=== PATIENT | female | born 1945 | race African-American/Black ===

== ENCOUNTER 2016-10-19 07:39 | Observation (INO) | payer OTHER ==
--- NOTE | 2016-10-19 07:50 | EDPHY ---
H & P Time Seen by Provider: 10/19/16 07:40 HPI/ROS: CHIEF COMPLAINT: Disgruntled HISTORY OF PRESENT ILLNESS: The patient is a 70-year-old female at [facility] who was angry with them and so called for help. She states that they would not get her a wheelchair so she had to "walk all the way down the elevator". She states that this caused her to have chest pain and so she called 411 and then 911. She states that her symptoms have now resolved. She does have a history of AFib and CHF and is on Xarelto. 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 She denies shortness of breath. She denies nausea vomiting or diarrhea. She denies recent illness. REVIEW OF SYSTEMS: Constitutional: denies: chills, fever, recent illness, recent injury EENTM: denies: blurred vision, double vision, nose congestion Respiratory: denies: cough, shortness of breath Cardiac: See HPI Gastrointestinal/Abdominal: denies: abdominal pain, diarrhea, nausea, vomiting, blood streaked stools Genitourinary: denies: dysuria, frequency, hematuria, pain Musculoskeletal: denies: joint pain, muscle pain Skin: denies: lesions, rash, jaundice, bruising Neurological: denies: headache, numbness, paresthesia, tingling, dizziness, weakness Hematologic/Lymphatic: denies: blood clots, easy bleeding, easy bruising Immunologic/allergic: denies: HIV/AIDS, transplant EXAM: GENERAL: Thin, dry skin HEAD: Atraumatic, normocephalic. EYES: Pupils equal round and reactive to light, extraocular movements intact, sclera anicteric, conjunctiva are normal. ENT: TMs normal, nares patent, oropharynx clear without exudates. Moist mucous membranes. NECK: Normal range of motion, supple without lymphadenopathy or JVD. LUNGS: Breath sounds clear to auscultation bilaterally and equal. No wheezes rales or rhonchi. HEART: Regular rate and rhythm without murmurs, rubs or gallops. ABDOMEN: Soft, nontender, normoactive bowel sounds. No guarding, no rebound. No masses appreciated. BACK: No CVA tenderness, no spinal tenderness, step-offs or deformities EXTREMITIES: No trauma, no pitting or edema. No clubbing or cyanosis. NEUROLOGICAL: Cranial nerves II through XII grossly intact. Normal speech, left-sided contractures and minimal movement. Right-sided normal. PSYCH: Normal mood, normal affect, laughing. SKIN: Warm, slightly dry, no visible rashes or lesions. Source: Patient, EMS, shelter records - Personal History Tetanus Vaccine Date: 2012 - Medical/Surgical History Hx Asthma: No Hx Chronic Respiratory Disease: No Hx Diabetes: Yes Hx Cardiac Disease: Yes Hx Renal Disease: No Hx Cirrhosis: No Hx Alcoholism: No Hx HIV/AIDS: No Hx Splenectomy or Spleen Trauma: No Other PMH: MD, CHF, CVA with L-sided deficits, hysterectomy - Family History Significant Family History: No pertinent family hx - Social History Smoking Status: Never smoked Alcohol Use: Sober Drug Use: None Constitutional: Initial Vital Signs Temperature (C) 37.3 C 10/19/16 07:50 Heart Rate 68 10/19/16 07:50 Respiratory Rate 18 10/19/16 07:50 Blood Pressure 111/65 10/19/16 07:50 O2 Sat (%) 95 10/19/16 07:50 O2 Delivery Mode Room Air Allergies/Adverse Reactions: aspirin Allergy (Verified 10/19/16 07:50) latex Allergy (Verified 10/19/16 07:50) levofloxacin Allergy (Verified 10/19/16 07:50) Home Medications: Medication Instructions Recorded Baclofen [Baclofen 10 mg (*)] 10 mg PO QID PRN 12/14/14 Carvedilol [Coreg (*)] 12.5 mg PO BID 12/14/14 Cholecalciferol Vit D3 [Vitamin D3 2,000 units PO DAILY 12/14/14 2000 units] Citalopram [CeleXA 20 MG] 20 mg PO DAILY 12/14/14 Cyanocobalamin [Vitamin B12 (*)] 1,000 mcg PO DAILY 12/14/14 Diclofenac Sodium 1% [Voltaren Gel 2 gm TP DAILY PRN 12/14/14 (*)] Docusate Sodium [Colace 100 MG (*)] 100 mg PO BID PRN 12/14/14 Ferrous Gluconate 325 mg PO DAILY 12/14/14 Lisinopril [Zestril 10 mg (*)] 5 mg PO DAILY 12/14/14 Magnesium Oxide [Magnesium Oxide 400 mg PO BID 12/14/14 400 mg (*)] Nitroglycerin [Nitrostat 0.4 mg 0.4 mg SL PRN PRN 12/14/14 (*)] Polyethylene Glycol 3350 [Miralax 17 gm PO BID PRN 12/14/14 17 gm (*)] traMADol [Ultram 50 mg (*)] 50 mg PO Q6 PRN 12/14/14 CETIRIZINE HCL [ZYRTEC] 5 mg PO BID PRN 02/09/15 metFORMIN HCL [Glucophage 500 mg 500 mg PO BIDMEAL 02/09/15 (*)] Dextran 70/Hypromellose 1 each OP QID PRN 10/19/16 [Artificial Tears] Enoxaparin [Lovenox 60 MG (*)] 60 mg SQ BID 10/19/16 Furosemide [Lasix 20 MG (*)] 20 mg PO DAILY 10/19/16 Herbals/Supplements -Info Only 1 ea PO DAILY 10/19/16 Loperamide HCl [Imodium 2 mg (*)] 2 mg PO PRN PRN 10/19/16 Ondansetron Odt [Zofran Odt 4 mg 4 mg PO Q8HRS PRN 10/19/16 (*)] Pravastatin Sodium 40 mg PO DAILY 10/19/16 Ranitidine HCl [Zantac] 150 mg PO BID 10/19/16 Rivaroxaban [Xarelto 15mg (*)] 15 mg PO DAILY 10/19/16 Spironolactone [Aldactone 25 MG 12.5 mg PO DAILY 10/19/16 (*)] Medical Decision Making - Diagnostics Imaging Results: Imaging Impressions Chest X-Ray 10/19/16 07:46 Impression: Nothing acute identified. X-ray: chest x-ray was obtained. I viewed the images myself on the PACS system. My interpretation of the images is: negative for acute disease . The radiologist interpretation is pending. ED Course/Re-evaluation: An EKG obtained and was read and documented in trace view. Please see trace view for full reading and report. Sinus rhythm, right bundle branch block, T- wave inversions unchanged from 2016 8:30 a.m. the patient has an elevated troponin. She had a catheterization [address] Parra. She had clean coronaries at that time but dilated cardiomyopathy with an ejection fraction 25%. 8:40 a.m. I discussed the case with Priyanka who accepted for Dr. Arriaga. She agrees with not giving aspirin. The patient's pain is currently gone. Differential Diagnosis: Partial list of the Differential diagnosis considered include but were not limited to; acute coronary disease, anxiety, CHF and although unlikely based on the history and physical exam, I also considered pneumonia, pneumothorax, trauma. Critical Care Time: Critical care time spent by me, Dr. Yang exclusive with this patient was 35 minutes, exclusive of the PA time exclusive of procedures. The organ system that was at risk was cardiovascular and I gave workup in consultation and admission to prevent worsening of the patient's condition - Data Points Laboratory Results: Laboratory Results 10/19/16 07:40 10/19/16 07:40 10/19/16 10/19/16 10/19/16 07:40 07:40 07:40 WBC RBC Hgb Hct MCV MCH MCHC RDW Plt Count MPV Neut % (Auto) Lymph % (Auto) Mcdowell % (Auto) Eos % (Auto) Baso % (Auto) Nucleat RBC Rel Count Absolute Neuts (auto) Absolute Lymphs (auto) Absolute Monos (auto) Absolute Eos (auto) Absolute Basos (auto) Absolute Nucleated RBC Immature Gran % Immature Gran # PT 21.3 SEC H SEC (12.0-15.0) INR 1.84 H (0.83-1.16) APTT 40.0 SEC H SEC (23.0-38.0) Sodium 141 mEq/L mEq/L (134-144) Potassium 4.2 mEq/L mEq/L (3.5-5.2) Chloride 106 mEq/L mEq/L (97-110) Carbon Dioxide 19 mEq/l L mEq/l (22-31) Anion Gap 16 mEq/L mEq/L (8-16) BUN 25 mg/dL H mg/dL (7-23) Creatinine 1.9 mg/dL H mg/dL (0.6-1.0) Estimated GFR 26 Glucose 96 mg/dL mg/dL (70-100) Calcium 10.3 mg/dL mg/dL (8.5-10.4) Phosphorus 3.3 mg/dL mg/dL (2.5-4.5) Magnesium 1.4 mg/dL L mg/dL (1.6-2.3) Troponin I 1.630 ng/mL H ng/mL (0.000-0.034) NT-Pro-B Natriuret Pep 493 pg/mL H pg/mL (0-125) 10/19/16 07:40 WBC 6.89 10^3/uL 10^3/uL (3.80-9.50) RBC 4.24 10^6/uL 10^6/uL (4.18-5.33) Hgb 11.0 g/dL L g/dL (12.6-16.3) Hct 33.8 % L % (38.0-47.0) MCV 79.7 fL L fL (81.5-99.8) MCH 25.9 pg L pg (27.9-34.1) MCHC 32.5 g/dL g/dL (32.4-36.7) RDW 13.9 % % (11.5-15.2) Plt Count 248 10^3/uL 10^3/uL (150-400) MPV 9.9 fL fL (8.7-11.7) Neut % (Auto) 63.9 % % (39.3-74.2) Lymph % (Auto) 26.4 % % (15.0-45.0) Mcdowell % (Auto) 8.7 % % (4.5-13.0) Eos % (Auto) 0.4 % L % (0.6-7.6) Baso % (Auto) 0.3 % % (0.3-1.7) Nucleat RBC Rel Count 0.0 % % (0.0-0.2) Absolute Neuts (auto) 4.40 10^3/uL 10^3/uL (1.70-6.50) Absolute Lymphs (auto) 1.82 10^3/uL 10^3/uL (1.00-3.00) Absolute Monos (auto) 0.60 10^3/uL 10^3/uL (0.30-0.80) Absolute Eos (auto) 0.03 10^3/uL 10^3/uL (0.03-0.40) Absolute Basos (auto) 0.02 10^3/uL 10^3/uL (0.02-0.10) Absolute Nucleated RBC 0.00 10^3/uL 10^3/uL (0-0.01) Immature Gran % 0.3 % % (0.0-1.1) Immature Gran # 0.02 10^3/uL 10^3/uL (0.00-0.10) PT INR APTT Sodium Potassium Chloride Carbon Dioxide Anion Gap BUN Creatinine Estimated GFR Glucose Calcium Phosphorus Magnesium Troponin I NT-Pro-B Natriuret Pep Medications Given: Clopidogrel Bisulfate (Plavix) 75 mg PO DAILY [facility] Stop: 04/17/17 09:59 Last Admin: 10/19/16 11:19 Dose: 75 mg Rivaroxaban (Xarelto) 15 mg PO DAILY [facility] Stop: 04/17/17 09:44 Last Admin: 10/19/16 11:10 Dose: Not Given Discontinued Medications Aspirin Buffered (Aspirin Ec) 325 mg PO ONCE ONE Stop: 10/19/16 09:37 Last Admin: 10/19/16 10:28 Dose: Not Given Departure - Departure Disposition: [facility] Inpatient Acute Clinical Impression: Chest pain Qualifiers: Chest pain type: unspecified Qualified Code(s): R07.9 - Chest pain, unspecified Condition: Fair
[2016-10-19 07:55] LABS: % IMMATURE GRANULYOCYTES 0.3 % (0.0-1.1); ABSOLUTE IMMATURE GRANULOCYTES 0.02 10^3/uL (0.00-0.10); ADD DIFF? NO; ADD MORPH? NO; ADD SCAN? NO; ATYPICAL LYMPHOCYTE FLAG 0 (0-99); FRAGMENT RBC FLAG 0 (0-99); HEMATOCRIT 33.8 % (38.0-47.0); LEFT SHIFT FLG 0 (0-99); LIPEMIA HEMOLYSIS FLAG 80 (0-99); MEAN CELL HEMOGLOBIN 25.9 pg (27.9-34.1); MEAN CELL HEMOGLOBIN CONCENTR. 32.5 g/dL (32.4-36.7); MEAN CELL VOLUME 79.7 fL (81.5-99.8); MEAN PLATELET VOLUME 9.9 fL (8.7-11.7); PLATELET CLUMPS FLAG 0 (0-99); PLATELET COUNT 248 10^3/uL (150-400); RED BLOOD CELL COUNT 4.24 10^6/uL (4.18-5.33); RED CELL DISTRIBUTION WIDTH 13.9 % (11.5-15.2)
--- NOTE | 2016-10-19 07:58 | CPEKG ---
Heart Rate: 59 RR Interval: 1017 P-R Interval: 216 QRSD Interval: 132 QT Interval: 456 QTC Interval: 452 P [place]: 71 QRS [place]: -29 T Wave [place]: 195 EKG Severity - ABNORMAL ECG - EKG Impression: SINUS RHYTHM EKG Impression: RIGHT BUNDLE BRANCH BLOCK EKG Impression: INFERIOR INFARCT, AGE INDETERMINATE EKG Impression: Unchanged from March 2015 Electronically Signed By: Quinn Yang 19-Oct-2016 08:11:12
[2016-10-19 08:15] LABS: ANION GAP 16 mEq/L (8-16); CALCIUM 10.3 mg/dL (8.5-10.4); CARBON DIOXIDE 19 mEq/l (22-31); CHLORIDE 106 mEq/L (97-110); CREATININE 1.9 mg/dL (0.6-1.0); GLOMERULAR FILTRATION RATE 26; GLUCOSE 96 mg/dL (70-100); POTASSIUM 4.2 mEq/L (3.5-5.2); SODIUM 141 mEq/L (134-144)
[2016-10-19 08:42] LABS: INR 1.84 (0.83-1.16); PROTIME(PATIENT) 21.3 SEC (12.0-15.0)
[2016-10-19] MEDS ORDERED: ASPIRIN EC 325 MG TAB PO ONE (09:36)
[2016-10-19] MEDS ORDERED: ACETAMINOPHEN 325 MG TAB PO PRN (09:37)
[2016-10-19] MEDS ORDERED: ONDANSETRON DISINTEGRATING 4 MG TAB PO PRN (09:37)
[2016-10-19] MEDS ORDERED: ONDANSETRON 4 MG/2 ML VIAL IVP PRN (09:37)
[2016-10-19] MEDS ORDERED: oxyCODONE IR 5 MG TAB PO PRN (09:37)
[2016-10-19] MEDS ORDERED: traMADol 50 MG TAB PO PRN (09:39)
[2016-10-19] MEDS ORDERED: NITROGLYCERIN 0.4 MG BTL SL PRN (09:39)
[2016-10-19] MEDS ORDERED: DOCUSATE SODIUM 100 MG CAP PO PRN (09:39)
[2016-10-19] MEDS ORDERED: BACLOFEN 10 MG TAB PO PRN (09:39)
[2016-10-19] MEDS ORDERED: LOPERAMIDE HCL 2 MG CAP PO PRN (09:39)
[2016-10-19] MEDS ORDERED: DICLOFENAC SODIUM 1% 100 GM GEL TP PRN (09:39)
[2016-10-19] MEDS ORDERED: POLYETHYLENE GLYCOL 3350 17 GM PKT PO PRN (09:39)
[2016-10-19] MEDS ORDERED: D50W 25 GM/50 ML SYR IVP PRN (09:42)
[2016-10-19 09:51] LABS: MAGNESIUM 1.4 mg/dL (1.6-2.3)
--- NOTE | 2016-10-19 10:33 | GHP ---
[f rep st] HISTORY AND PHYSICAL DATE OF ADMISSION: 10/19/2016 CHIEF COMPLAINT: Frustrated with nursing care, neck/chest pain. HISTORY OF PRESENT ILLNESS: This is a 70-year-old female with a significant cardiac history present s with an episode of chest pain after being frustrated with the nursing staff at [facility] where she lives. She has a history of a stroke with left-sided contractures. She is normally in a motori zed wheelchair; however, this was not working this morning. This made her slightly upset and she hernandez d an episode of stabbing chest pain which went to her back. Nursing staff told that she was able to walk, so she did walk with her cane. She says that her chest pain got worse as she was ambulating. It was associated with shortness of breath. She does not normally have pain like this. She was t hus transported to the emergency department here and found to have an elevated troponin of 1.6. She has a significant cardiac history including dilated cardiomyopathy thought to be a combination o f ischemic and nonischemic, coronary artery disease with likely an inferior ND, AFib currently on Xa relto. She has been compliant with her medications. PAST MEDICAL/SURGICAL HISTORY: 1. Atrial fibrillation, rate controlled on Coreg, on Xarelto for anticoagulation. 2. 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 3. Cardiomyopathy with an EF of about 20% to 30%, followed by Dr. Juarez, thought to be ischemic and nonischemic in nature, had refused AICD placement in the past. 4. Likely coronary artery disease, status post cath by Dr. Parra in December of 2014 showing glob al hypokinesis and inferior akinesis with otherwise normal coronary arteries. 5. Hypertension. 6. Hyperlipidemia. 7. Diabetes mellitus type 2. 8. Chronic kidney disease with a baseline creatinine of about 1.8. This has been slowly climbing. MEDICATIONS: Please see medication reconciliation. ALLERGIES: Aspirin, Lasix, and Levaquin. SOCIAL HISTORY: She lives at [facility] permanently. FAMILY HISTORY: Reviewed and noncontributory. REVIEW OF SYSTEMS: 10-point review of systems is conducted and is negative except per HPI. PHYSICAL EXAM: VITAL SIGNS: Blood pressure 108/46, heart rate 62, respiration rate 16, saturating 95% on room air, temperature is 37.3. GENERAL: The patient is a pleasant female who is resting com fortably in bed. She does have noted left-sided contractures, in no acute distress. HEENT: Normoc ephalic, atraumatic. CARDIOVASCULAR: Regular rate and rhythm, though she is borderline bradycardic . No murmurs, rubs, or gallops. PULMONARY: Lungs clear to auscultation bilaterally. ABDOMEN: So ft, nontender, nondistended. SKIN: No rash. GENITOURINARY: No Durán. NEUROLOGIC: Alert and bre ented x3. She has left-sided hemiparesis and contractures. PSYCHIATRIC: Normal mood and affect. LABORATORY: White count is 6.9, hemoglobin 11. INR is 1.8. Creatinine is 1.9. Troponin is 1.6. Potassium is 4.2. DATA: 1. I discussed this with both Dr. Yang as well as Dr. Saldana. 2. Chest x-ray, which I personally viewed and interpreted, shows mild right basilar linear infiltra tom which I believe are most likely atelectasis. It is not very changed from her prior. 3. EKG, which I personally viewed and interpreted, shows a right bundle branch block. She has infe rior Q-waves. She has T-wave inversions in all of her precordial leads which were not significantly changed from prior. IMPRESSION AND PLAN: 70-year-old female with significant cardiac history presents with chest pain a nd elevated troponin. 1. Tub-[id number] myocardial infarction: I have discussed this with Dr. Saldana, who will consult. She is anticoagulated currently on Xarelto. She has an aspirin allergy. I will give her Plavix in stead. She is currently chest pain-free. Will trend her troponins and follow closely with Cardiolo gy. I have made her n.p.o. in case a procedure is indicated. 2. Chronic kidney disease: She is approximately at her baseline. Creatinine of 1.9. This has cre pt up recently. I will go ahead and check urine electrolytes now. 3. History of a cerebrovascular accident: She is anticoagulated on Xarelto. She does have left-si ded contractures and hemiparesis. I have continued her other symptomatic medications. 4. Atrial fibrillation: Rate controlled, anticoagulated on Xarelto. 5. Hypertension: Controlled. 6. Anemia: This is chronic and stable. It is microcytic. 7. Diabetes mellitus type 2: Will check blood sugars and give her low-dose sliding scale. Will ho ld her metformin with elevated creatinine. 8. Hyperlipidemia. 9. Code status: She would like to be a limited resuscitation. She declines intubation but would w ant CPR. This is consistent with her prior request. She is Catholic and would not want a blood transfusion. 10. Venous thromboembolism risk is low as she is on Xarelto. /[id number]/MODL
[2016-10-19] MEDS ORDERED: TEARS/DEXTRAN 70/HYPROMELLOSE 15 ML OPHT.BTL OP PRN (10:59)
[2016-10-19] MEDS ORDERED: CETIRIZINE 10 MG TAB PO PRN (11:00)
[2016-10-19] MEDS: RIVAROXABAN 15 MG TAB PO SCH (11:10)
[2016-10-19] MEDS: CLOPIDOGREL BISULFATE 75 MG TAB PO SCH (11:19)
[2016-10-19] MEDS: INSULIN LISPRO 100 UNIT/ML SC SCH ×2 (12:23→16:04)
[2016-10-19] MEDS ORDERED: MAGNESIUM SULF 2 GM/WATER 50 ML IV ONE (13:48)
[2016-10-19 18:35] LABS: COLOR YELLOW; LEUKOCYTE ESTERASE,URINE NEGATIVE (NEGATIVE); NITRITE,URINE NEGATIVE (NEGATIVE)
[2016-10-19] MEDS: CARVEDILOL 6.25 MG TAB PO SCH (18:55)
[2016-10-19] MEDS: FAMOTIDINE 20 MG TAB PO SCH (20:33)
[2016-10-19] MEDS: MAGNESIUM OXIDE 400 MG TAB PO SCH (20:33)
--- NOTE | 2016-10-19 21:54 | GCON ---
[f rep st] CONSULTATION DATE OF CONSULTATION: 10/19/2016 PRIMARY CARE: Aury Kaiser MD PRIMARY FLIGHT PARAMEDIC: Nikki Juarez MD CHIEF COMPLAINT: Chest pain. HISTORY OF PRESENT ILLNESS: We were asked by Dr. Arriaga to visit with this patient. The patient i s a 70-year-old female with a history of nonischemic cardiomyopathy, paroxysmal atrial fibrillation, chronic renal insufficiency and stroke. She resides at the [facility]. This morning she was upset with the staff there because they were not helping her get to the elevator. In this setting, she had some sharp chest pain that radiated to he r back. Because of this symptom, she was brought to the ER. Her chest pain has now resolved. She has not had any recent shortness of breath, presyncope, or syncope. She denies palpitations. N o lower extremity edema. She has been working with physical therapy and is able to do some walking despite her significant left-sided contractures and weakness, status post stroke. In the past, she has declined an ICD for her cardiomyopathy. ALLERGIES: Aspirin, latex and levofloxacin. PAST MEDICAL HISTORY: 1. Paroxysmal atrial fibrillation. 2. Nonischemic cardiomyopathy. 3. Pulmonary hypertension. 4. Chronic renal insufficiency. 5. Dyslipidemia. 6. Stroke. 7. Hypertension. 8. Anemia. 9. Status post hysterectomy. 10. Diabetes. OUTPATIENT MEDICATIONS: Reviewed. SOCIAL HISTORY: The patient lives at the [facility] . She does not smoke cigarettes or dri nk alcohol. 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 The patient is Anabaptist. FAMILY HISTORY: Not applicable to the current case. PHYSICAL EXAM: VITAL SIGNS: Blood pressure 123/67, heart rate 55, oxygen saturation 98% on room ai r. She is afebrile. Respiratory rate 17. GENERAL: Well-appearing older female in no acute distres s. HEENT: Sclerae clear, free of jaundice. Mucous members are moist. CARDIOVASCULAR: JVP is les s than 10. Regular rate and rhythm without murmur, rub, or gallop. LUNGS: Clear to auscultation w ithout wheezes, rhonchi, or rales. EXTREMITIES: Warm and well perfused without cyanosis, clubbing, or edema. ABDOMEN: Soft, nontender, nondistended without bruits, masses or hepatosplenomegaly. LABORATORY DATA: White count 6.9, hematocrit 33.8, and platelets are 248. INR 1.84. Sodium 141, po tassium 4.3, chloride 106, bicarb 19, BUN 25, creatinine 1.9, magnesium 1.4. Troponin initially was 1.6, and then upon repeat 4 hours later is 0.027. BNP is 493, which is near her baseline. EKG, reviewed by me, shows sinus rhythm, right bundle branch block, and inferior Q-waves. Chest x-ray, reviewed by me, shows no acute cardiopulmonary process. Her last cardiac catheterization was in December 2014, with no coronary disease. Her last echocardio gram was also in 2014, demonstrating left ventricular ejection fraction of 20% to 25%. ASSESSMENT AND PLAN: A 70-year-old female with multiple cardiac issues as detailed above. She pres ents with an episode of chest pain that was self-limited and not ongoing. Her initial troponin was 1.6 but is now completely normal, suggestive of lab error. She appears euvolemic. 1. Chest pain: This does not appear to be cardiac. Repeat 1 more troponin. If negative, she may be safely discharged back to the [facility]. Continue her usual cardiac medications. 2. Catheterization less than 2 years ago showed no coronary disease. She was given a dose of Plavi x in the ER when her troponin is 1.6 (aspirin allergy), but I do not feel that we need to continue o n the Plavix if her 3rd troponin is also negative. 3. Cardiomyopathy: Ejection fraction in 2015 was approximately 20%. She has declined implantable cardioverter defibrillator. She appears euvolemic. She is on Coreg. Lisinopril is listed on her o utpatient medication but has not been started here in the hospital. Would consider this may be due to her increasing creatinine. Would have her follow up with Dr. Juarez as an outpatient for reconsid eration of lisinopril therapy. Also as an outpatient, she is listed to be on spironolactone, but ag ain this may be on hold due to her increasing creatinine. As mentioned, she should follow up with Eric Juarez in 1-2 weeks. 4. Paroxysmal atrial fibrillation: She is currently in sinus rhythm. She has a history of stroke. She is on Xarelto at appropriate renal dosing. 5. Hypertension: Currently well controlled. 6. Chronic renal insufficiency: Near her baseline but overall slightly worse for the past several months. She will require outpatient followup. 7. Anemia: This is chronic. 8. History of nonsustained ventricular tachycardia: This is seen on telemetry this morning. She h as previously declined an implantable cardioverter defibrillator and again declined that today. 9. Thank you for allowing us to participate in this patient's care. We will sign off. I think she is stable for discharge if her 3rd troponin is negative and she has no change in clinical status. Follow up with Dr. Juarez. /[id number]/MODL
[2016-10-20 04:58] LABS: ADD DIFF? NO; ADD MORPH? NO; ADD SCAN? NO; ATYPICAL LYMPHOCYTE FLAG 10 (0-99); FRAGMENT RBC FLAG 20 (0-99); HEMATOCRIT 30.7 % (38.0-47.0); HEMOGLOBIN 9.8 g/dL (12.6-16.3); LEFT SHIFT FLG 0 (0-99); LIPEMIA HEMOLYSIS FLAG 80 (0-99); MEAN CELL HEMOGLOBIN 25.5 pg (27.9-34.1); MEAN CELL HEMOGLOBIN CONCENTR. 31.9 g/dL (32.4-36.7); MEAN CELL VOLUME 79.7 fL (81.5-99.8); MEAN PLATELET VOLUME 9.9 fL (8.7-11.7); PLATELET CLUMPS FLAG 0 (0-99); PLATELET COUNT 226 10^3/uL (150-400); RED BLOOD CELL COUNT 3.85 10^6/uL (4.18-5.33); RED CELL DISTRIBUTION WIDTH 13.8 % (11.5-15.2)
[2016-10-20 05:15] LABS: ALANINE AMINOTRANSFERASE 20 IU/L (9-52); ALBUMIN 3.5 g/dL (3.5-5.0); ALKALINE PHOSPHATASE 37 IU/L (38-126); ANION GAP 8 mEq/L (8-16); ASPARTATE AMINOTRANSFERASE 16 IU/L (14-46); BILIRUBIN,TOTAL 0.7 mg/dL (0.1-1.4); CALCIUM 9.7 mg/dL (8.5-10.4); CARBON DIOXIDE 27 mEq/l (22-31); CHLORIDE 104 mEq/L (97-110); CREATININE 1.7 mg/dL (0.6-1.0); GLOMERULAR FILTRATION RATE 30; GLUCOSE 85 mg/dL (70-100); POTASSIUM 3.6 mEq/L (3.5-5.2); SODIUM 139 mEq/L (134-144); TOTAL PROTEIN 6.6 g/dL (6.3-8.2)
[2016-10-20 07:24] VITALS: RESP 16; TEMP 97.3; O2SAT 96
[2016-10-20] MEDS ORDERED: FERROUS GLUCONATE 325 MG PO SCH (09:00)
[2016-10-20] MEDS ORDERED: CITALOPRAM 20 MG TAB PO SCH (09:00)
[2016-10-20] MEDS ORDERED: FERROUS SULFATE 325 MG TAB PO SCH (09:00)
[2016-10-20] MEDS ORDERED: PRAVASTATIN SODIUM 40 MG TAB PO SCH (09:00)
[2016-10-20] MEDS ORDERED: CYANO/VITAMIN B12 1000 MCG TAB PO SCH (09:00)
--- NOTE | 2016-10-20 09:06 | CPEKG ---
Heart Rate: 61 RR Interval: 984 P-R Interval: 240 QRSD Interval: 132 QT Interval: 480 QTC Interval: 484 P [place]: 73 QRS [place]: -24 T Wave [place]: 87 EKG Severity - ABNORMAL ECG - EKG Impression: SINUS RHYTHM EKG Impression: FIRST DEGREE AV BLOCK EKG Impression: RIGHT BUNDLE BRANCH BLOCK EKG Impression: INFERIOR INFARCT, AGE INDETERMINATE Electronically Signed By: Shade Fagan 20-Oct-2016 21:58:16
[2016-10-20] MEDS: CARVEDILOL 6.25 MG TAB PO SCH (09:09)
[2016-10-20] MEDS: INSULIN LISPRO 100 UNIT/ML SC SCH (09:09)
[2016-10-20] MEDS: MAGNESIUM OXIDE 400 MG TAB PO SCH (09:10)
[2016-10-20] MEDS: CLOPIDOGREL BISULFATE 75 MG TAB PO SCH (09:10)
[2016-10-20] MEDS: FAMOTIDINE 20 MG TAB PO SCH (09:10)
[2016-10-20] MEDS: RIVAROXABAN 15 MG TAB PO SCH (09:13)
[2016-10-20 09:37] VITALS: BP 91/52; PULSE 57
--- NOTE | 2016-10-20 10:55 | GDS ---
[f rep st] DISCHARGE SUMMARY DIAGNOSES: 1. Chest pain, likely noncardiac. 2. Laboratory error with markedly elevated troponin. 3. History of dilated cardiomyopathy, thought to be ischemic and nonischemic in nature. 4. Chronic kidney disease at baseline. 5. History of a cerebrovascular accident. 6. Atrial fibrillation, rate controlled, anticoagulated on Xarelto. 7. Hypertension. 8. Anemia. 9. Diabetes mellitus type 2. 10. Hyperlipidemia. HOSPITAL COURSE: This is a 70-year-old female who presented with atypical chest pain. Her initial troponin was markedly elevated at 1.6. However, followup troponin 3 hours later was normal. This w ould physiologically be impossible. Thus, the assumption, by me as well as Cardiology, is that the initial troponin was a lab error. Notably, she had a third followup troponin which was also in the normal range. She feels well and ready to go. I will discharge her without any changes in her card iac medications. Diabetes mellitus type 2: She has been on metformin. Given her creatinine, I think it is probably quesada to hold this. Will defer to her outpatient physicians on ongoing care. Atrial fibrillation: She is on Xarelto. She does have Lovenox on her MAR, which is planned for a d ental procedure. I put this back on her MAY, but she should not get both Xarelto and Lovenox at the same time. Cardiomyopathy/nonsustained ventricular tachycardia: She has refused AICD in the past. Otherwise, she is on appropriate cardiac medications. DISPOSITION: She is discharged in stable condition to her previous living situation at [facility] . /[id number]/MODL
== END 2016-10-20 12:30 | disposition home or self-care (01) ==
LOC: EDUNIT# → F2W 10:37
PROVIDERS: ADMIT Student in an Organized Health Care Education/Training Program; ATTEND Student in an Organized Health Care Education/Training Program
DX: R07.9 Chest pain, unspecified (principal); N18.9 Chronic kidney disease, unspecified; I48.91 Unspecified atrial fibrillation; I10 Essential (primary) hypertension; D64.9 Anemia, unspecified; E11.9 Type 2 diabetes mellitus without complications; E78.5 Hyperlipidemia, unspecified; Z86.73 Personal history of transient ischemic attack (TIA), and cerebral infarction without residual deficits
CPT/HCPCS: 71010; 93005; 97162; 97165; 99291; G0378; G8978; G8979; G8980; G8987; G8988; G8989

== ENCOUNTER 2017-04-11 14:07 | Emergency (ER) | payer OTHER ==
[2017-04-11 14:39] VITALS: TEMP 98.1
--- NOTE | 2017-04-11 14:54 | CPEKG ---
Heart Rate: 50 RR Interval: 1200 P-R Interval: 268 QRSD Interval: 138 QT Interval: 500 QTC Interval: 456 P [place]: 98 QRS [place]: -52 T Wave [place]: 16 EKG Severity - ABNORMAL ECG - EKG Impression: SINUS RHYTHM EKG Impression: FIRST DEGREE AV BLOCK EKG Impression: RIGHT BUNDLE BRANCH BLOCK EKG Impression: INFERIOR INFARCT, AGE INDETERMINATE EKG Impression: CONSIDER ANTERIOR INFARCT Electronically Signed By: Chelsey Francisco 11-Apr-2017 22:29:03
--- NOTE | 2017-04-11 15:34 | EDPHY ---
H & P Stated Complaint: Transient CP this am;sent for eval;no pain at present Time Seen by Provider: 04/11/17 14:46 HPI/ROS: CHIEF COMPLAINT: Transient chest pain and "can I see a psychiatrist? " HISTORY OF PRESENT ILLNESS: This is a 71-year-old female with a history of coronary artery disease status post NC, CVA, hypertension, type 2 diabetes, and hyperlipidemia. She presents by ambulance from the [facility] after complaining of chest pain. She tells me that about 2 hr ago she had migrating chest pain while at rest. It occurs on both sides of her body. She took tramadol with relief. She is not currently experiencing chest pain. She had no other associated symptoms. She is also requesting to see a psychiatrist because she "feels crazy ". She cannot be more specific than that she relates it to events at her living facility. She is unhappy with the care that she receives there. She is moving out on , 2 days from now, and will be going to [place] where she has relatives. She denies suicidality or homicidality. REVIEW OF SYSTEMS: A ten point review of systems was performed and is negative with the exception of the items mentioned in the HPI. Past medical history: 1. Coronary artery disease status post NC 2. CHF 3. Hypertension 4. Hyperlipidemia 5. Type 2 diabetes 6. CVA with residual left-sided weakness Past surgical history: Hysterectomy Social history: Resides at the [facility]. Walks with a cane. General Appearance: Alert. Vital signs reviewed. Blood pressure 147/60. Eyes: Pupils equal and round, no conjunctival injection, no discharge. Anicteric. ENT, Mouth: Mucous membranes are moist, no oropharyngeal erythema or edema. Neck: No lymphadenopathy, supple. Respiratory: Lungs are clear to auscultation; no wheezes, rales, or rhonchi. Cardiovascular: Regular rate and rhythm; no murmur, rub, or gallop. Gastrointestinal: Abdomen is soft and nontender, no masses or organomegaly, bowel sounds normal. Skin: Warm and dry, no rashes on exposed skin, normal color. Back: Nontender to palpation over the thoracolumbar spine. No CVAT. Extremities: No lower extremity edema, no calf tenderness or swelling. Neurological: Alert and oriented. Contracture left upper extremity. Slight weakness left lower extremity. Normal strength right UE and LE. Psychiatric: Normal affect. - Personal History Current Tetanus Diphtheria and Acellular Pertussis (TDAP): Yes Tetanus Vaccine Date: 2012 - Medical/Surgical History Hx Asthma: No Hx Chronic Respiratory Disease: No Hx Diabetes: Yes Hx Cardiac Disease: Yes Hx Renal Disease: No Hx Cirrhosis: No Hx Alcoholism: No Hx HIV/AIDS: No Hx Splenectomy or Spleen Trauma: No Other PMH: NC, CHF, CVA with L-sided deficits, hysterectomy - Social History Smoking Status: Never smoked Constitutional: Initial Vital Signs Temperature (C) 36.7 C 04/11/17 14:05 Heart Rate 78 04/11/17 14:05 Respiratory Rate 18 04/11/17 14:05 Blood Pressure 147/60 H 04/11/17 14:05 O2 Sat (%) 94 04/11/17 14:05 O2 Delivery Mode Room Air Allergies/Adverse Reactions: aspirin Allergy (Verified 04/11/17 14:09) latex Allergy (Verified 04/11/17 14:09) levofloxacin Allergy (Verified 04/11/17 14:09) Home Medications: Medication Instructions Recorded Baclofen [Baclofen 10 mg (*)] 10 mg PO QID PRN 12/14/14 Carvedilol [Coreg (*)] 12.5 mg PO BID 12/14/14 Cholecalciferol Vit D3 [Vitamin D3 2,000 units PO DAILY 12/14/14 2000 units] Citalopram [CeleXA 20 MG] 20 mg PO DAILY 12/14/14 Cyanocobalamin [Vitamin B12 (*)] 1,000 mcg PO DAILY 12/14/14 Diclofenac Sodium 1% [Voltaren Gel 2 gm TP DAILY PRN 12/14/14 (*)] Docusate Sodium [Colace 100 MG (*)] 100 mg PO BID PRN 12/14/14 Ferrous Gluconate 325 mg PO DAILY 12/14/14 Lisinopril [Zestril 10 mg (*)] 5 mg PO DAILY 12/14/14 Nitroglycerin [Nitrostat 0.4 mg 0.4 mg SL PRN PRN 12/14/14 (*)] traMADol [Ultram 50 mg (*)] 50 mg PO Q6 PRN 12/14/14 CETIRIZINE HCL [ZYRTEC] 5 mg PO BID PRN 02/09/15 Furosemide [Lasix 20 MG (*)] 20 mg PO DAILY 10/19/16 Ondansetron Odt [Zofran Odt 4 mg 4 mg PO Q8HRS PRN 10/19/16 (*)] Pravastatin Sodium 40 mg PO DAILY 10/19/16 Rivaroxaban [Xarelto 15mg (*)] 15 mg PO DAILY 10/19/16 Spironolactone [Aldactone 25 MG 12.5 mg PO DAILY 10/19/16 (*)] Medical Decision Making - Diagnostics EKG Interpretation: 12 lead EKG is interpreted in Trace master View by emergency department physician. ED Course/Re-evaluation: 71 year old c/o chest pain, now resolved, and also expressing dissatisfaction with her living situation at the [facility]. Case management involved. Nursing staff and case management spoke with patient's daughter, who lives in [place]. Patient agrees to return to the [facility]--she is moving out of that facility in two days and will be moving to [place]. She had no chest pain while in ED. EKG and single troponin reviewed. EKG compared to previous. HEART score of 3 (low). Although she has history of NC, I do not think that today's chest pain is cardiac in etiology. I think that stress/anxiety is playing a large role. She is noted to have elevated BUN and creatinine, higher than previous levels that are available in our system. She was made aware of this and is advised to have this followed up next week when she settles in [place]. Copies of her labs were provided. She received NS 500 ml IV. I think that she is slightly dehydrated. UA with trace bacteria, LE, blood. She has no urinary complaints whatsoever. Differential Diagnosis: Chest pain including but not limited to myocardial ischemia, pulmonary embolus, chest wall pain, anxiety, pleural inflammation and pulmonary infectious causes. - Data Points Laboratory Results: Laboratory Results 04/11/17 14:38 04/11/17 14:38 Medications Given: Discontinued Medications Sodium Chloride (Ns) 500 mls @ 1,000 mls/hr IV EDNOW ONE PRN Reason: Protocol Stop: 04/11/17 16:46 Last Admin: 04/11/17 16:31 Dose: 500 mls Departure - Departure Disposition: Home, Routine, Self-Care Clinical Impression: Chest pain Qualifiers: Chest pain type: other chest pain Qualified Code(s): R07.89 - Other chest pain Condition: Good Instructions: Noncardiac Chest Pain (ED) Additional Instructions: As we discussed, I would like you to see your new doctor in [place] next week. I am giving you copies of your blood work so that can see it. He the a new doctor needs to be aware that your kidney function tonight is worse than it was when we last checked it. We last checked her kidney function on and at that time your creatinine was 1.7. Referrals: ALO SANTANA [Other] - As per Instructions
[2017-04-11 15:35] LABS: PLATELET COUNT 252 10^3/uL (150-400)
[2017-04-11] MEDS ORDERED: NS 500 ML IV ONE (16:17)
[2017-04-11 16:43] VITALS: BP 110/72
[2017-04-11 20:11] VITALS: PULSE 68; RESP 16
[2017-04-11 20:12] VITALS: O2SAT 94
--- NOTE | 2017-04-12 20:12 | ASDISCHSUM ---
Discharge Information Plan Status:Assisted Living Medically Cleared to Leave: Discharge Date:04/11/2017 08:12 PM D/C Disposition:Assisted Living ADT D/C Disposition:Home, Routine, Self-Care Projected Discharge Date:04/11/2017 08:12 PM Transportation at D/C:Cab Voucher Discharge Delay Reason: Follow-Up Date:04/11/2017 08:12 PM Discharge Slot: Final Diagnosis: Placement Information Patient Contact Information Contact Name:EDISON Relationship:Daughter Address: Work Phone: City:[place] Alternate Phone: State/[place] Code:[place] Email: Financial Information Financial Class: Primary Plan Desc:MEDICARE OUTPATIENT Primary Plan Number:[id number] Secondary Plan Desc:BHUPINDER MCGARRY Secondary Plan Number:[id number] Assessment Information [facility] CM Progress Note CM Note CM Note Notes: Late Entry: Pt presented to the ED via EMS for chest pain, stress over her living situation. Patient lives at the [facility] ([phone]) and pt has multiple complaints about her care there. Patient's daughter Adrien Harding ([phone]) lives in [place] and called into the ED and spoke with pt's RN a couple of times, also relaying concerns about patient's care at the [facility], stating that she is "getting a kst operator" because she believes her mother is being neglected and requesting that patient not be sent back there. Spoke with Jamila, Health and Wellness Dye Machine Tender at the [facility], and she says patient "refuses to shower," "refuses to let us help her clean, do laundry or other upkeep," and that they cannot force her to do anything. She also says that Adrien has arranged for patient to move to [place] on and that patient has "refused to let staff help her pack," but that a friend came over this past weekend and helped pt pack and clean up her apt. Jamila states patient seems very stressed, anxious and lonely. Patient appears pleasant, well-kept, and does not appear neglected. Patient is medically stable for discharge back to the [facility] and she is agreeable to this plan. Patient called her friend Sammi for a ride but she was unavailable. There weren't any transport vans available at the [facility]. Patient is able to ambulate with a cane and Tha Barnes at the [facility] said patient could take a cab home. Taxi cab arranged, voucher provided. Patient assisted into vehicle and Tha Barnes will meet her on arrival with either a wheelchair or her cane. ED DANIEL Maria also said he spoke with another Health and Legal Intern at the [facility], Manisha. This CM attempted to get a hold of Manisha today but instead spoke with Yenifer, another Health and Legal Intern at the [facility]. Yenifer states patient made it home safely and they have not heard of any increased symptoms or issues today. TODAY 04/12/17: Spoke with Adrien and she says that she is very concerned about her mother's care at the [facility] and is "getting a kst operator." This CM provided empathetic listening and also provided Adrien with the # for APS and the [facility] Ombudsman. Adrien says she will contact [facility] as she heard the [facility] Ombudsman "doesn't do anything." When this CM tried to reassure Adrien that the patient didn't appear neglected and that the concerns were relayed to staff at the [facility], Adrien said "well, yah they are all in on it. They are just taking advantage of the fact that my mother resists their assistance so then they dont' have to do their jobs." CM available for further assistance if needed. Date Signed: 04/12/2017 08:10 PM Electronically Signed By:Tasha Avendano RN Intervention Information
== END 2017-04-11 20:12 | disposition home or self-care (01) ==
LOC: EDUNIT#
DX: R07.89 Other chest pain (principal); I25.10 Atherosclerotic heart disease of native coronary artery without angina pectoris; I25.2 Old myocardial infarction; I11.0 Hypertensive heart disease with heart failure; I50.9 Heart failure, unspecified; E11.9 Type 2 diabetes mellitus without complications; E86.9 Volume depletion, unspecified; Z86.73 Personal history of transient ischemic attack (TIA), and cerebral infarction without residual deficits; Z91.040 Latex allergy status; Z79.01 Long term (current) use of anticoagulants